=== PATIENT | male | born 1995 | race Caucasian/White ===

== ENCOUNTER → 2020-02-09 | Outpatient (CLI) | payer OTHER ==
[~2020-02-09] MED LIST: ALBUTEROL INHALER; TYLENOL #3
--- NOTE | 2020-02-09 08:24 | REPVR ---
PROCEDURE INFORMATION: Exam: MR Lumbar Spine Without Contrast. 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 COMPARISON: No relevant prior studies available. FINDINGS: Vertebrae: Vertebral body heights normal. No visible pars defects. No subluxation. Site levoconvexity seen on scalp view may be also positional. There is no disc desiccation. Disc heights are maintained. Vertebral body marrow signal is unremarkable. Spinal cord: Conus terminates at T12-L1 and appears normal in signal intensity without intrinsic or extrinsic lesion. L1-L2: There is no significant disc bulge or protrusion. There is no significant spinal stenosis. There is no significant neural foraminal narrowing. L2-L3: There is no significant disc bulge or protrusion. There is no significant spinal stenosis. There is no significant neural foraminal narrowing. L3-L4: There is mild disc bulge. There is no focal protrusion. There is mild facet degeneration. There is no significant spinal stenosis. There is no significant neural foraminal narrowing. L4-L5: There is [id number] disc bulge. There is mild facet degeneration. There is mild spinal canal narrowing. There is [id number] medial bilateral neural foraminal narrowing, without evidence of nerve root displacement. L5-S1: There is no significant disc bulge or protrusion. There is no significant spinal stenosis. There is no significant neural foraminal narrowing. Soft tissues: See "Vertebrae" finding. IMPRESSION: 1. No visible pars defects or spondylolisthesis. 2. Mild degenerative changes with mild narrowing of spinal canal at L4-L5 but no definite nerve root impingement. No focal disc herniation. Electronically signed by: Maddison Bean On 02/09/2020 08:24:31 AM
== END ==
LOC: M RAD 07:12
DX: M51.36 Other intervertebral disc degeneration, lumbar region (principal); M43.06 Spondylolysis, lumbar region